=== PATIENT | male | born 1965 | race Hispanic/Latino ===

== ENCOUNTER → 2024-09-20 | Emergency (ER) | payer MEDICARE ==
[~2024-09-20] MED LIST: LOSA-418 PO
--- NOTE | 2024-09-20 17:38 | ERN ---
ED Note History of Present Illness Stated Complaint: STAPLE REMOVAL Time Seen by MD: 17:08 Time Seen by Midlevel: 17:08 Dictation: The patient is a 59-year-old male with a history of EtOH, hypertension who presents to the emergency department for staple remover. Patient had a fall on September 08 and will had placed 12 isrrael to scalp. Patient denies any drainage, denies any fevers. Denies any complaints Allergies: Coded Allergies: No Known Allergies (Unverified Allergy, Unknown, 02/21/23) Home Meds Active Scripts Losartan Potassium (Cozaar) 50 Mg Tablet, 50 MG PO DAILY, #30 TAB Prov:NUNU ISAACS AGPCNP 09/10/24 Past Medical History Past Medical History: Hypertension Surgical History: None RN Note Reviewed/Agreed w/PFSH: Yes Review of System Dictation Constitutional: Negative for fever,chills, and weight loss Eyes: Negative for injury, pain,redness, and discharge ENT: Negative for injury,pain or swelling Cardiovascular: Negative for chest pain, palpitations, and edema Respiratory: Negative for shortness of breath, cough, and wheezing, Abdomen/GI: Negative for abdominal pain, nausea, vomiting, diarrhea, and cons tipation Back: Negative for injury and pain : Negative for injury, bleeding and discharge MS/Extremity: Negative for injury and deformity Skin: Negative for rash, and discoloration positive for wound to scalp Neuro: Negative for headache, weakness, numbness, tingling, and seizure Psych: Negative for suicide ideation, homicidal ideation, and hallucinations Physical Exam Dictation Vital Signs reviewed General Appearance: Alert, oriented x 3, no acute distress, well developed, nourished. Head and Face: non-traumatic. Eyes: , pink conjunctivas, eyelid no trauma, anterior chamber with arcus senilis. Ears: Pinnas intact and no signs of trauma or erythema ear canals clear and no discharge TM no erythema Nose: No discharge, no bleeding. Oropharynx: Mouth normal, tongue pink. pharynx clear,no erythema, tonsils no exudates, no abscesses noted, mucous m embrane moist Neck: Supple, non-tender, no thyromegaly, no masses, no JVD, no bruits Breast:Deferred Chest:No tenderness, no crepitus, no paradoxical movement, no retractions Lungs:Clear, well-ventilated, symmetric, no rales, no wheezing, no rhonchi, no stridor, good breath sounds bilaterally Heart: Regular rate, regular rhythm, no murmur, no gallops Vascular: no peripheral edema, Abdomen: Soft, positive bowel sounds, nondistended, no guarding, nontender, no rebound, no masses no hepatomegaly, no splenomegaly, no Aguero's sign, no hernias. Rectal: Deferred Genital: Deferred Neurological: Normal speech, motor function intact, sensory function intact Musculoskeletal: Neck nontender, full range of motion, back nontender, full range of motion, Extremities: nontender, full range of motion Skin: Color pink, dry, no turgor, no rash, no lacerations, no abrasions, no contusions. Toe isrrael noted to scalp, u laceration, no abnormal drainage, no erythema. Lymphatic: Deferred Results (Laboratory/Radiology) Labs Reviewed?: Yes Medical Decision Making MDM The patient is a 59-year-old male with a history of EtOH, hypertension who presents to the emergency department for staple remover. Patient had a fall on September 08 and will had placed 12 isrrael to scalp. Patient denies any drainage, denies any fevers. Denies any complaints Twelve isrrael successfully removed from scalp. Patient tolerated procedure well. No erythema or drainage noted. No signs of infection. Wound healing appropriately. Differential diagnosis: Cellulitis, stable removal, wound evaluation Need for hospitalization: Patient does not meet criteria for hospitalization. There are no social concerns with this patient. DX & DISP Disposition: Discharge Departure Impression: Primary Impression: Removal of staple Condition: Stable Additional Instructions: Please follow up with the primary doctor in 1-2 days. Continue keeping the wound clean and dry. FOLLOW-UP WITH PRIMARY CARE PROVIDER IN 1 TO 2 DAYS. TAKE MEDICATIONS DIRECTED HERE IN THE EMERGENCY ROOM. OKAY TO CONTINUE HOME MEDICATIONS UNLESS OTHERWISE DISCUSSED DURING YOUR VISIT IN THE EMERGENCY ROOM TODAY. RETURN TO YOUR NEAREST EMERGENCY ROOM IF SYMPTOMS WORSEN OR IF THERE IS NO IMPROVEMENT. CALL 911 IF YOU NEED IMMEDIATE ASSISTANCE. TAKE TYLENOL OR MOTRIN [id number] NEEDED AND IF NO CONTRAINDICATIONS ARE PRESENT. INCREASE ORAL HYDRATION. A WOUND CULTURE OR URINE CULTURE WAS ORDERED HERE [facility] DE[facility]MENT PLEASE FOLLOW-UP WITH PRIMARY CARE PROVIDER AND ADVISE THEM TO GET REPEAT PORTS FROM OUR FACILITY. IF YOU HAD ANY KIRSTIN WRAP/SPLINTS THAT WERE APPLIED HERE, PLEASE DO NOT REMOVE THEM UNTIL YOU SEE YOUR PRIMARY CARE OR SPECIALTY. Referrals: SELF,REFERRAL (PCP) Time of Disposition: 17:37 I have reviewed the case, and I agree with, Diagnosis and Plan DUGLAS SHIN Sep 20, 2024 17:38 LIS MARTINEZ DO Sep 21, 2024 07:29
--- NOTE | 2024-09-20 17:49 | NUR ---
UNABLE TO TRIGE PT, PT SEEN BY PROVIDER, PT ELOPED
== END ==
LOC: EDH 17:07
DX: S01.01XD Laceration without foreign body of scalp, subsequent encounter (principal); I10 Essential (primary) hypertension; Z79.899 Other long term (current) drug therapy; Z48.02 Encounter for removal of sutures; X58.XXXD Exposure to other specified factors, subsequent encounter
CPT/HCPCS: 99282